=== PATIENT | male | born 1970 | race Caucasian/White ===

== ENCOUNTER 2017-11-08 15:50 | Emergency (ER) | payer OTHER ==
[2017-11-08 19:55] LABS: ABS Basophils 0.1 10^3/ul (0-0.2); ABS Eosinophils 0 10^3/ul (0-0.6); ABS Lymphocytes 1.8 10^3/ul (1.0-4.8); ABS Monocytes 0.9 10^3/ul (0-0.8); ABS Neutrophils 5.4 10^3/ul (1.5-7.7); ABS Nucleated RBC 0 10^3/ul; Eosinophil % 0.6 % (0-6); Hematocrit 40 % (42-52); Hemoglobin 13.4 g/dl (14.0-18.0); Mean Corpuscular HGB Conc 34 g/dl (31-36); Mean Corpuscular Hemoglobin 30 pg (27-31); Mean Corpuscular Volume 89 fL (80-94); Mean Platelet Volume 8 um3 (7.4-10.4); Nucleated Red Blood Cells % 0.1; Platelet Count 314 10^3/ul (150-450); Red Blood Count 4.46 10^6/ul (4.0-5.4); Red Cell Distribution Width 13 % (10.5-15); White Blood Count 8.2 10^3/ul (3.5-10.8)
--- NOTE | 2017-11-08 19:55 | RAD ---
CLINICAL HISTORY: Left lower quadrant pain COMPARISON: None TECHNIQUE: Noncontrast CT examination of the abdomen and pelvis from the lung bases through the initial tuberosities. FINDINGS: VISUALIZED LUNG BASES: The visualized lung bases are grossly clear. There is no pleural effusion. ABDOMEN AND PELVIS: Evaluation of the solid organs and vasculature is limited without intravenous contrast. The liver, spleen, pancreas and adrenal glands are grossly normal in appearance. The gallbladder is normal. There is questionable infiltration of the fat along the left of midline anterior margin of the pancreas (for example image 43). The kidneys are normal in appearance without focal mass, calcification or signs of hydronephrosis. Evaluation of the gastrointestinal tract is limited without oral contrast. The small and large bowel are not distended. The diminutive appendix is likely identified in the right lower quadrant (axial image 74 and sagittal image 58) these. There are scattered rectosigmoid diverticuli the distal colon but no definite pericolonic inflammatory changes characteristic of diverticulitis. There are no pathologically dilated mesenteric or retroperitoneal lymph nodes. There is a small amount of infiltration of the fat along the mesenteric root at the left of midline upper abdomen (axial image 58 and coronal image 29). There are scattered lymph nodes in this vicinity but none are pathologically enlarged. Coarse calcification is noted in the prostate gland. The abdominal aorta and iliac arteries are normal in course and diameter. Degenerative changes include multilevel loss of intervertebral disc height involving the lower thoracic and lumbar spine. IMPRESSION: 1. There is nonspecific mild infiltration of the peripancreatic fat along the left of midline anterior tail the pancreas and also seen at the left of midline mesenteric root. Please correlate to signs or symptoms of pancreatitis. Such an appearance could also be seen in the presence of mild infectious or inflammatory bowel disease. 2. No renal calculi or signs of hydronephrosis are observed. 3. Chronic and degenerative changes also noted in the body the report unlikely to BE related to the patient's current clinical presentation.
[2017-11-08 20:06] LABS: EGFR Non-African American 91.6 (>60)
[2017-11-08 20:56] LABS: Urine Appearance Clear; Urine Blood Negative (Negative); Urine Color Yellow; Urine Ketones 1+ (Negative); Urine Protein Negative (Negative); Urine Specific Gravity 1.012 (1.010-1.030); Urine Urobilinogen Negative (Negative)
[2017-11-08 21:58] VITALS: BP 159/87
--- NOTE | 2017-11-09 11:31 | ED ---
Minerva Tapia Thomas, scribed for Dakota Ding MD on 11/08/17 at 1910 . Abdominal Pain/Male - HPI Summary HPI Summary: The patient is a 46 year old male presenting to the ED complaining of LLQ abdominal pain that has been intermittent for the last week. The pain radiates to his back. The pain is described as achiness and soreness. The pain is rated 2 /10. The pain is aggravated by food (BLT and peanut clusters). The patient has treated the pain with nothing prior to arrival. Patient additionally complaining of dark foul urine. Patient denies diarrhea and constipation. - History of Current Complaint Chief Complaint: EDAbdPain Stated Complaint: LT ABD PAIN Time Seen by Provider: 11/08/17 17:06 Hx Obtained From: Patient Onset/Duration: Lasting Weeks - 1, Still Present Timing: Intermittent Severity Currently: Mild Pain Intensity: 2 Pain Scale Used: 0-10 Numeric Location: Discrete At: LLQ Radiates: Yes Radiates to: Back Aggravating Factor(s): Food - BLT and peanut clusters Alleviating Factor(s): Nothing Associated Signs And Symptoms: Negative: Fever, Constipation, Diarrhea - Allergies/Home Medications Allergies/Adverse Reactions: Allergies Allergy/AdvReac Type Severity Reaction Status Date / Time Diphenhydramine Allergy Dizziness Verified 11/08/17 20:46 [From Benadryl] PMH/Surg Hx/FS Hx/Imm Hx Previously Healthy: No Endocrine/Hematology History: Denies: Hx Diabetes Sensory History: Denies: Hx Legally Blind Infectious Disease History: Yes Infectious Disease History: Denies: Traveled Outside the [place] in Last 30 Days - Family History Known Family History: Positive: Other - gallbladder disease - Social History Occupation: Employed Full-time - truck driver supervisor Alcohol Use: Weekly Substance Use Type: Reports: None Smoking Status (MU): Never Smoked Tobacco Review of Systems Negative: Fever Positive: Abdominal Pain. Negative: Diarrhea, Other - constipation Positive: other - Dark urine All Other Systems Reviewed And Are Negative: Yes Physical Exam - Summary Physical Exam Summary: Appearance: The patient is well-nourished in no acute distress and in no acute pain. Skin: The skin is warm and dry and skin color reflects adequate perfusion. HEENT: The head is normocephalic and atraumatic. The pupils are equal and reactive. The conjunctivae are clear and without drainage. Nares are patent and without drainage. Mouth reveals moist mucous membranes and the throat is without erythema and exudate. The external ears are intact. The ear canals are patent and without drainage. The tympanic membranes are intact. Neck: the neck is supple with full range of motion and non-tender. There are no carotid bruits. There is no neck vein distension. Respiratory: Chest is non-tender. Lungs are clear to auscultation and breath sounds are symmetrical and equal. Cardiovascular: Heart is regular rate and rhythm. There is no murmur or rub auscultated. There is no peripheral edema and pulses are symmetrical and equal. Abdomen: The abdomen is soft and non-tender. There are normal bowel sounds heard in all four quadrants and there is no organomegaly palpated. Musculoskeletal: There is no back tenderness noted. Extremities are non-tender with full range of motion. There is good capillary refill. There is no peripheral edema or calf tenderness elicited. Neurological: Patient is alert and oriented to person, place and time. The patient has symmetrical motor strength in all four extremities. Cranial nerves are grossly intact. Deep tendon reflexes are symmetrical and equal in all four extremities. Psychiatric: The patient has an appropriate affect and does not exhibit any anxiety or depression. Triage Information Reviewed: Yes Vital Signs On Initial Exam: Initial Vitals Temp Pulse Resp BP Pulse Ox 98.1 F 61 18 165/106 100 11/08/17 16:09 11/08/17 16:09 11/08/17 16:09 11/08/17 16:09 11/08/17 16:09 Vital Signs Reviewed: Yes - Anne-Marie Coma Scale Coma Scale Total: 15 Diagnostics - Vital Signs Vital Signs Temp Pulse Resp BP Pulse Ox 11/08/17 16:09 98.1 F 61 18 165/106 100 - Laboratory Lab Results: Lab Results 11/08/17 11/08/17 11/08/17 Range/Units 19:35 19:35 19:35 WBC 8.2 (3.5-10.8) 10^3/ul RBC 4.46 (4.0-5.4) 10^6/ul Hgb 13.4 L (14.0-18.0) g/dl Hct 40 L (42-52) % MCV 89 (80-94) fL MCH 30 (27-31) pg MCHC 34 (31-36) g/dl RDW 13 (10.5-15) % Plt Count 314 (150-450) 10^3/ul MPV 8 (7.4-10.4) um3 Neut % (Auto) 65.7 (38-83) % Lymph % (Auto) 22.0 L (25-47) % [place] % (Auto) 10.8 H (1-9) % Eos % (Auto) 0.6 (0-6) % Baso % (Auto) 0.9 (0-2) % Absolute Neuts (auto) 5.4 (1.5-7.7) 10^3/ul Absolute Lymphs (auto) 1.8 (1.0-4.8) 10^3/ul Absolute Monos (auto) 0.9 H (0-0.8) 10^3/ul Absolute Eos (auto) 0 (0-0.6) 10^3/ul Absolute Basos (auto) 0.1 (0-0.2) 10^3/ul Absolute Nucleated RBC 0 10^3/ul Nucleated RBC % 0.1 Sodium 134 (133-145) mmol/L Potassium 4.0 (3.5-5.0) mmol/L Chloride 100 L (101-111) mmol/L Carbon Dioxide 28 (22-32) mmol/L Anion Gap 6 (2-11) mmol/L BUN 5 L (6-24) mg/dL Creatinine 0.89 (0.67-1.17) mg/dL Est GFR ( Amer) 117.8 (>60) Est GFR (Non-Af Amer) 91.6 (>60) BUN/Creatinine Ratio 5.6 L (8-20) Glucose 93 (70-100) mg/dL Lactic Acid 0.8 (0.5-2.0) mmol/L Calcium 9.5 (8.6-10.3) mg/dL Total Bilirubin 0.60 (0.2-1.0) mg/dL AST 15 (13-39) U/L ALT 18 (7-52) U/L Alkaline Phosphatase 64 (34-104) U/L C-Reactive Protein 19.05 H (< 5.00) mg/L Total Protein 7.6 (6.4-8.9) g/dL Albumin 4.4 (3.2-5.2) g/dL Globulin 3.2 (2-4) g/dL Albumin/Globulin Ratio 1.4 (1-3) Lipase 23 (11.0-82.0) U/L Urine Color Urine Appearance Urine pH (5-9) Ur Specific [place] (1.010-1.030) Urine Protein (Negative) Urine Ketones (Negative) Urine Blood (Negative) Urine Nitrate (Negative) Urine Bilirubin (Negative) Urine Urobilinogen (Negative) Ur Leukocyte Esterase (Negative) Urine Glucose (Negative) 11/08/17 Range/Units 20:45 WBC (3.5-10.8) 10^3/ul RBC (4.0-5.4) 10^6/ul Hgb (14.0-18.0) g/dl Hct (42-52) % MCV (80-94) fL MCH (27-31) pg MCHC (31-36) g/dl RDW (10.5-15) % Plt Count (150-450) 10^3/ul MPV (7.4-10.4) um3 Neut % (Auto) (38-83) % Lymph % (Auto) (25-47) % [place] % (Auto) (1-9) % Eos % (Auto) (0-6) % Baso % (Auto) (0-2) % Absolute Neuts (auto) (1.5-7.7) 10^3/ul Absolute Lymphs (auto) (1.0-4.8) 10^3/ul Absolute Monos (auto) (0-0.8) 10^3/ul Absolute Eos (auto) (0-0.6) 10^3/ul Absolute Basos (auto) (0-0.2) 10^3/ul Absolute Nucleated RBC 10^3/ul Nucleated RBC % Sodium (133-145) mmol/L Potassium (3.5-5.0) mmol/L Chloride (101-111) mmol/L Carbon Dioxide (22-32) mmol/L Anion Gap (2-11) mmol/L BUN (6-24) mg/dL Creatinine (0.67-1.17) mg/dL Est GFR ( Amer) (>60) Est GFR (Non-Af Amer) (>60) BUN/Creatinine Ratio (8-20) Glucose (70-100) mg/dL Lactic Acid (0.5-2.0) mmol/L Calcium (8.6-10.3) mg/dL Total Bilirubin (0.2-1.0) mg/dL AST (13-39) U/L ALT (7-52) U/L Alkaline Phosphatase (34-104) U/L C-Reactive Protein (< 5.00) mg/L Total Protein (6.4-8.9) g/dL Albumin (3.2-5.2) g/dL Globulin (2-4) g/dL Albumin/Globulin Ratio (1-3) Lipase (11.0-82.0) U/L Urine Color Yellow Urine Appearance Clear Urine pH 6.0 (5-9) Ur Specific [place] 1.012 (1.010-1.030) Urine Protein Negative (Negative) Urine Ketones 1+ H (Negative) Urine Blood Negative (Negative) Urine Nitrate Negative (Negative) Urine Bilirubin Negative (Negative) Urine Urobilinogen Negative (Negative) Ur Leukocyte Esterase Negative (Negative) Urine Glucose Negative (Negative) Result Diagrams: 11/08/17 19:35 11/08/17 19:35 Lab Statement: Any lab studies that have been ordered have been reviewed, and results considered in the medical decision making process. - CT A/P CT Interpretation: Positive (See Comments) - 1. There is nonspecific mild infiltration of the peripancreatic fat along the left of midline anterior tail the pancreas and also seen at the left of midline mesenteric root. Please correlate to signs or symptoms of pancreatitis. Such an appearance could also be seen in the presence of mild infectious or inflammatory bowel disease. 2. No renal calculi or signs of hydronephrosis are observed. 3. Chronic and degenerative changes also noted in the body the report unlikely to BE related to the patient's current clinical presentation. ED physician has reviewed this radiology report. CT Interpretation Completed By: Radiologist Abdominal Pain Fem Course/Dx - Course Course Of Treatment: Mr Siddiqi presented with some mild abdominal pain. His labs were normal and his CT scan was equivocal for mild infectious colitis vs inflammatory bowel disease vs pancreatitis. His lipase was normal. I think the appropriate thing is to be conservative and wait and see how this progresses. He may need antibiotics if he continues to worsen or a GI consult and I recommended close F/U. - Diagnoses Provider Diagnoses: Abdominal pain Discharge - Discharge Plan Condition: Stable Disposition: HOME Patient Education Materials: Abdominal Pain (ED) Referrals: Larissa Gerber RN [Primary Care Provider] - 3 Days Additional Instructions: Follow up with your primary care physician in 3-4 days. Return to the emergency department for any new or worsening symptoms. The documentation as recorded by the Minerva montalvo Thomas accurately reflects the service I personally performed and the decisions made by me, Dakota Ding MD.
== END 2017-11-08 21:57 | disposition home or self-care (01) ==
LOC: ED 15:50
DX: R10.32 Left lower quadrant pain (principal); K86.9 Disease of pancreas, unspecified; Z88.8 Allergy status to other drugs, medicaments and biological substances
CPT/HCPCS: 36415; 74176; 80053; 81003; 83605; 83690; 85025; 86140; 99282

== ENCOUNTER 2018-10-18 07:45 | Emergency (ER) | payer OTHER ==
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
[2018-10-18 08:11] VITALS: BP 160/104
== END 2018-10-18 09:00 | disposition home or self-care (01) ==
LOC: UCEAST 07:45
DX: S20.221A Contusion of right back wall of thorax, initial encounter (principal); V56.4XXA Person boarding or alighting a pick-up truck or van injured in collision with other nonmotor vehicle, initial encounter; W20.8XXA Other cause of strike by thrown, projected or falling object, initial encounter; Y92.9 Unspecified place or not applicable; Y99.0 Civilian activity done for income or pay
CPT/HCPCS: 99211; G0463